=== PATIENT | male | born 1955 | race African-American/Black ===

== ENCOUNTER → 2016-12-23 | Outpatient (CLI) | payer BC, OTHER ==
[~2016-12-23] MED LIST: AMOXICILLIN/POTASSIU PO; AMOXICILLIN250 M1 PO; APAP500; ASPIRIN; CIALIS2.5 MG PO; CLARAVIS10 MG; FERRO-TIME325 MG; HYCET 7.5 MG-3473 ML PO; IBUPROFEN 200200 M1 PO; LEVAQUIN 500 M500 MG PO; LORTAB PO; NOHOMEMEDICATIONS; ONDANSETRON HCL4 M2 PO; SENNA-S TABLET1 EACH PO; TRAMADOL 50 MG50 MG PO; ZOFRAN ODT4 MG PO; denies meds
== END ==
LOC: ULTRA 07:51
DX: R74.8 Abnormal levels of other serum enzymes (principal)

== ENCOUNTER 2016-12-28 07:41 | Emergency (ER) | payer BC, OTHER ==
[~2016-12-28] VITALS: Ht 170.2 cm; Wt 63.5 kg
--- NOTE | ~2016-12-28 | EKG ---
[address] [address] ELECTROCARDIOGRAM REPORT Name: CLAUDIA CORTES RAQUEL [id number] Admission: 12/28/16 Attend Phys: Discharge: 12/28/16 Date of : 55 Report #: [id number] THIS REPORT FOR: //name// 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 : 1955 Requested By: Roberto Carlos aMson Order Number: [id number] MD: Anson Almendarez Measurements Intervals [place] Rate: 69 P: 9 MS: 157 QRS: 91 QRSD: 91 T: 21 QT: 380 QTc: 407 Interpretive Statements Sinus rhythm Probable early Repolarization Compared to ECG 09/01/2015 21:59:05 No significant change was found Electronically Signed On 12-29-2016 8:46:33 CDT by Anson Almendarez [email or web address] <ELECTRONICALLY SIGNED> By: Anson Almendarez MD, [facility] 12/29/16 0846 8 8 Anson Almendarez MD, [facility] /EPI
[2016-12-28] MEDS ORDERED: DOXYCYCLINE 10100 MG PO (07:49)
[2016-12-28] MEDS ORDERED: ACCUNEB SO1.25 MG/1 INH (07:49)
[2016-12-28 08:14] LABS: ABSOLUTE NEUTROPHILS 2.7 thou/uL (1.4-8.2); EOSINOPHILS 12.6 % (0.0-3.0); HEMATOCRIT 38.6 % (42.0-52.0); HEMOGLOBIN 12.9 gm/dL (14.0-18.0); LYMPHOCYTES 34.1 % (24.0-44.0); MCH 30.5 pg (26.0-34.0); MCHC 33.5 g/dL (28.0-37.0); MCV 91.1 fL (80.0-100.0); MONOCYTES 8.9 % (1.0-8.0); PLATELET COUNT 246 thou/uL (150-400); POLYS 43.4 % (36.0-66.0); RBC 4.24 mil/uL (4.50-6.00); RDW 13.3 % (10.5-14.5); WBC 6.1 thou/uL (4.0-11.0)
[2016-12-28 08:16] LABS: MANUAL DIFF NO
[2016-12-28 08:34] LABS: ANION GAP 11 mmol/L (7-16); BUN 11 mg/dL (7-18); CALCIUM 9.4 mg/dL (8.5-10.1); CHLORIDE 103 mmol/L (98-107); CO2 26 mmol/L (21-32); CREATININE 1.2 mg/dL (0.7-1.3); GLUCOSE 96 mg/dL (74-106); POTASSIUM 4.2 mmol/L (3.5-5.1)
[2016-12-28 08:36] LABS: SODIUM 140 mmol/L (136-145)
[2016-12-28] MEDS ORDERED: PREDNISONE 20 M20 MG PO (08:47)
[2016-12-28] MEDS ORDERED: VENTOLIN HFA 1818 GM INH (08:47)
[2016-12-28 08:50] LABS: ALBUMIN 3.8 g/dL (3.4-5.0); ALKALINE PHOSPHATASE 52 U/L (46-116); NT-PRO BRAIN NAT PEPTIDE 10 pg/mL (<300); SGOT 35 U/L (15-37); SGPT 36 U/L (30-65); TOTAL BILIRUBIN 0.4 mg/dL (<0.1-1.0); TOTAL PROTEIN 7.5 g/dL (6.4-8.2); TROPONIN-I < 0.04 ng/mL (<0.04-0.07)
[2016-12-28 09:15] VITALS: BP 132/78
[2016-12-28 09:32] LABS: CK-MB MASS 0.7 ng/mL (<0.5-3.6)
== END 2016-12-28 09:16 | disposition home or self-care (01) ==
LOC: ER 07:41
PROVIDERS: Emergency Medicine
DX: J40 Bronchitis, not specified as acute or chronic (principal); J98.01 Acute bronchospasm; Z98.890 Other specified postprocedural states; Z88.0 Allergy status to penicillin

== ENCOUNTER 2018-07-29 08:30 | Inpatient (IN) | payer BC, OTHER ==
[~2018-07-29] VITALS: Ht 170.2 cm; Wt 68.0 kg
[~2018-07-29 08:30] MED LIST changes: +ACCUNEB SO1.25 MG/1 INH; +DOXYCYCLINE 10100 MG PO; +PREDNISONE 20 M20 MG PO; +VENTOLIN HFA 1818 GM INH
[2018-07-29 08:35] VITALS: BP 160/101
[2018-07-29 09:28] LABS: ABSOLUTE NEUTROPHILS 8.8 thou/uL (1.4-8.2); BASOPHILS 0.3 % (0.0-2.0); EOSINOPHILS 0.2 % (0.0-3.0); HEMOGLOBIN 13.6 gm/dL (14.0-18.0); LYMPHOCYTES 8.7 % (24.0-44.0); MCHC 33.1 g/dL (28.0-37.0); MCV 90.5 fL (80.0-100.0); MONOCYTES 3.9 % (1.0-8.0); PLATELET COUNT 304 thou/uL (150-400); POLYS 86.9 % (36.0-66.0); RBC 4.53 mil/uL (4.50-6.00); RDW 13.5 % (10.5-14.5); WBC 10.2 thou/uL (4.0-11.0)
[2018-07-29 09:35] LABS: CREATININE 1.2 mg/dL (0.7-1.3); POTASSIUM 4.1 mmol/L (3.5-5.1)
[2018-07-29 09:40] LABS: ALBUMIN 4.1 g/dL (3.4-5.0); DIRECT BILIRUBIN 0.2 mg/dL (<0.1-0.3); TOTAL BILIRUBIN 0.6 mg/dL (<0.1-1.0); TOTAL PROTEIN 9.2 g/dL (6.4-8.2)
[2018-07-29 10:02] LABS: URINE CLARITY CLEAR; URINE COLOR YELLOW; URINE SPECIFIC GRAVITY 1.015 (1.005-1.035)
[2018-07-29 10:03] LABS: URINE BILIRUBIN NEGATIVE (Negative); URINE BLOOD NEGATIVE (Negative); URINE GLUCOSE-RANDOM* NEGATIVE (Negative); URINE KETONES 2+ (Negative); URINE LEUKOCYTES NEGATIVE (Negative); URINE NITRITE NEGATIVE (Negative); URINE PROTEIN (DIPSTICK) NEGATIVE (Negative); URINE UROBILINOGEN 0.2 E.U./dl (0.2-1.0)
[2018-07-29] MEDS ORDERED: SPIRIVA18 MCG INH (10:08)
[2018-07-29] MEDS ORDERED: SINGULAIR 10 MG10 M1 PO (10:08)
[2018-07-29 10:35] VITALS: BP 152/82
[2018-07-29 13:00] VITALS: BP 161/86
--- NOTE | 2018-07-29 13:17 | NUR ---
PT ARRIVED ON UNIT ACCOMPANIED BY ALERT XS 4 NO JANE NO RESP DISTRESS AT THIS TIME. ADMISSION PAPERWORK. SUCTION AND VITALS TO BE COMPLETED AT THIS TIME, PT IS ADMITTED WITH DX SMALL BOWEL OBSTRUCTION . ADMIITED MED SURGE .
[2018-07-29 18:44] VITALS: BP 161/86
[2018-07-29 20:33] VITALS: BP 154/78
[2018-07-30 04:37] VITALS: BP 149/85
--- NOTE | 2018-07-30 06:11 | NUR ---
ASSUMED CARE AT 1900, ASSESSMENT COMPLETED. PT REPORTS MODERATE BURNING PAIN IN ABD, GAVE MORPHINE ONCE. REPORTS MILD NAUSEA, ONE DOSE OF ZOFRAN. PT ASKED TO TRY NOT TAKING MEDS OVERNIGHT SO HE COULD DIFFERENTIATE PAIN. NG IN LEFT NARE AT 59, PULLING DARK REDDISH BROWN, GRAINY LIQUID, 400 ML OUT OVERNIGHT. STATES HE WANTS TO GET UP THIS MORNING AND CLEAN UP THEN WALK AROUND. IV FLUIDS INFUSING. NO OTHER CONCERNS, WILL CONTINUE TO MONITOR.
[2018-07-30 07:16] VITALS: BP 137/83
--- NOTE | 2018-07-30 11:25 | NUR ---
ASSUMED CARE THIS AM, SHIFT ASSESSMENT DONE, REMAINS NPO. ON LOW INTERMITTENT NG SUCTION. PRODUCING BROWN BLOODY FLUIDS. REPROTED NAUSEA AND PAIN, PRN MEDS GIVEN. WALKED AROUD THE UNIT THIS AM, UP AD JAVON. WILL CONTINUE TO ASSESS AND ASSIST WITH ADLs NEEDED.
[2018-07-30 13:41] LABS: HEMATOCRIT 38.1 % (42.0-52.0); HEMOGLOBIN 12.5 gm/dL (14.0-18.0); MCH 30.1 pg (26.0-34.0); MCHC 32.9 g/dL (28.0-37.0); MCV 91.6 fL (80.0-100.0); RBC 4.16 mil/uL (4.50-6.00); RDW 13.3 % (10.5-14.5); WBC 6.9 thou/uL (4.0-11.0)
[2018-07-30 13:45] LABS: CALCIUM 9.1 mg/dL (8.5-10.1); CREATININE 1.1 mg/dL (0.7-1.3); POTASSIUM 3.7 mmol/L (3.5-5.1)
[2018-07-30 16:11] VITALS: BP 140/74
--- NOTE | 2018-07-30 16:42 | NUR ---
PT ADMITTED RELATED TO SMALL BOWEL OBSTRUCTION. CM REVIEWED CHART AND SPOKE WITH CARE TEAM. CM MET WITH PT AT BEDSIDE THIS DAY. PT IS A&O X4 CM ROLE INTRODUCED. PT INDICATED HE LIVES IN A HOUSE WITH HIS SPOUSE WITH 2 STEPS TO ENTER AND NO STEPS INSIDE. 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 PT INDICATED NO DME OR HH HX. PT ANTICIPATES RETURNING HOME ONCE MEDICALLY STABLE. CM TO FOLLOW INDICATED WITH DC PLANNING.
--- NOTE | 2018-07-31 04:15 | NUR ---
ASSUMED CARE AT 1900, ASSESSMENT COMPLETED. PT REPORTS HE STILL HAS BURNING PAIN IN MID ABD, RATING FROM 5-7 OVERNIGHT, GIVEN MORPHINE ONCE SO FAR. C/O MODERATE NAUSEA, ZOFRAN ONCE TONIGHT WELL. PT REFUSED TO TAKE IV PEPCID, STATED IT INCREASED HIS PAIN LEVEL WHEN GIVEN IN THE AM. ATTEMPTED TO EXPLAIN THE PURPOSE OF THE PEPCID, AND ENCOURAGE HIM TO TRY IT BY ITSELF TONIGHT RATHER THAN WITH THE MORPHINE AND ZOFRAN HE HAD HAD IT EARLIER, BUT STILL REFUSED. MINIMAL OUTPUT FROM NG TUBE OVERNIGHT; WAS ABLE TO FLUSH WATER THROUGH IT BUT DID NOT DRAW BACK ANYTHING, MOST OF THE OUTPUT FROM SUCTION HAS BEEN CLEAR. STOMACH SEEMS SLIGHTLY FIRMER TONIGHT COMPARED TO PREVIOUS SHIFT, AND BOWEL SOUNDS ARE QUIETER IN ALL QUADS. PT HAS ANXIETY ABOUT HOW LONG THE TUBE NEEDS TO BE IN, ASKED IF "THE AIR IN MY STOMACH WILL TURN TOXIC," HOW WILL THE DOCTOR KNOW IF BOWEL FUNCTION IS BACK IF NOTHING IS IN THE STOMACH, ETC...ATTEMPTED TO EXPLAIN BUT PT SEEMED TO BE REALLY STRUGGLING WITH ALL THESE CONCEPTS. NO OTHER CONCERNS, WILL CONTINUE TO MONITOR.
[2018-07-31 05:03] VITALS: BP 148/96
[2018-07-31 07:00] VITALS: BP 133/88
--- NOTE | 2018-07-31 09:27 | NUR ---
PT TAKEN TO PRE OP AT THIS TIME SURGERY WITH DR CANDELARIO AT 10:30 OR 11:00 PT W/O PAIN OR RESP DISTRESS.
[2018-07-31 14:11] VITALS: BP 133/88
[2018-07-31 14:46] VITALS: BP 151/86
[2018-07-31 20:25] VITALS: BP 152/87
--- NOTE | 2018-08-01 07:16 | NUR ---
ASSUMED CARE AT 1900, ASSESSMENT COMPLETED. PT C/O ABD PAIN AND MILD NAUSEA ALL NIGHT, GAVE ZOFRAN AND MORPHINE EVERY 4-5 HOURS. STOMACH FIRM BUT NOT HARD, HYPOACTIVE BOWEL SOUNDS, DENIED PASSING GAS. ABOUT 350 ML OUT OF NG. HAD LOW-GRADE TEMP ABOUT 100 AT MIDNIGHT BUT CAME BACK DOWN TO 98 BY AM VITALS. IV FLUIDS INFUSING, HAVING DARK YELLOW URINE OUT. NO OTHER CONCERNS, WILL CONTINUE TO MONITOR.
--- NOTE | 2018-08-01 08:14 | NUR ---
ASSESMENT COMPLETED. VSS. A/O. C/O PAIN MANAGED BY MEDS ORDERED. NO NOTED SOA. NO NV. NG TO LIS. PT ANTICIPATING TO DC NG TODAY. WILL CONT. TO MONITOR.
[2018-08-01 08:24] VITALS: BP 147/92
[2018-08-01 10:08] LABS: HEMATOCRIT 36.8 % (42.0-52.0); HEMOGLOBIN 12.5 gm/dL (14.0-18.0); MCH 30.3 pg (26.0-34.0); MCHC 33.9 g/dL (28.0-37.0); MCV 89.5 fL (80.0-100.0); RBC 4.11 mil/uL (4.50-6.00); RDW 12.7 % (10.5-14.5); WBC 8.3 thou/uL (4.0-11.0)
[2018-08-01 10:15] LABS: CALCIUM 8.7 mg/dL (8.5-10.1); CREATININE 1.1 mg/dL (0.7-1.3); POTASSIUM 3.2 mmol/L (3.5-5.1)
[2018-08-01 16:55] VITALS: BP 166/92
--- NOTE | 2018-08-01 17:42 | NUR ---
NG TUBE DC'D THIS AM ORDERED. PT WALKED SEVERAL TIMES IN HALLWAY. PT RESTING IN BED AT THIS TIME WITH EYES CLOSE. WILL CONT. TO MONITOR.
[2018-08-01 20:06] VITALS: BP 141/98
--- NOTE | 2018-08-02 02:59 | NUR ---
PT DENIED PAIN SO FAR.PT UP ADLIB IN ROOM,WALKED 3 LAPS IN THE UNIT BEFORE RETIRING TO HIS ROOM.PT DRINKING AND TOLERATING CLEAR LIQUIDS OK,REFUSED TO CONT WITH HIS IVF.PT STATED THAT HE HAS STARTED TO PASS GAS.LAP SITES C/D/I.PT RESTING ON HIS BED AT THIS TIME ANTICIPATING DC IN THE AM.CALL LIGHT WITHIN REACH.
[2018-08-02 03:45] VITALS: BP 144/92
[2018-08-02 08:13] VITALS: BP 161/77
[2018-08-02] MEDS ORDERED: HYDROCODONE-AP1 EAC6 PO (10:51)
[2018-08-02 14:28] VITALS: BP 161/77
--- NOTE | 2018-08-02 16:04 | NUR ---
ASSUMED CARE AT 0700, SHIFT ASSESSMENT DONE, MEDS GIVEN, VSS. ON FULL LIQUID DIET FOR BREAKFAST, TOLERATED WELL. REGULAR DIET FOR LUCNH, TOLERATED WELL. DISCHARGE ORDERS RECEVIED. PERIPHERAL IV WAS TAKEN OUT. DISCHARGE PAPERWORK AND SCRIPT GIVEN. PATIENT LEFT WITH [facility] AND WAS PICKED UP BY .
== END 2018-08-02 15:41 | disposition home or self-care (01) | DRG 337 ==
LOC: ER 08:30 → 4E 10:03 → EROBS 10:03 → 4E 12:55 → ENTRNSPT 08-02 15:33 → 4E 08-02 15:41
PROVIDERS: Emergency Medicine; Surgery; ADMIT Internal Medicine
DX: K56.50 Intestinal adhesions [bands], unspecified as to partial versus complete obstruction (principal); J45.909 Unspecified asthma, uncomplicated; I10 Essential (primary) hypertension; R14.0 Abdominal distension (gaseous); Z79.899 Other long term (current) drug therapy; Z90.49 Acquired absence of other specified parts of digestive tract; Z88.0 Allergy status to penicillin
CPT/HCPCS: 10084; 50010; 50101; 50249; 50386; 50555; 52265; 53307; 53310; 54118; 56462; 56525; 56526; 56771; 57092; 62110; 62900; 70005

== ENCOUNTER 2018-08-08 15:09 | Inpatient (IN) | payer BC, OTHER ==
[~2018-08-08] VITALS: Ht 170.2 cm; Wt 68.0 kg
[~2018-08-08 15:09] MED LIST changes: +HYDROCODONE-AP1 EAC6 PO; +SINGULAIR 10 MG10 M1 PO; +SPIRIVA18 MCG INH
[2018-08-08 15:10] VITALS: BP 129/85
[2018-08-08 15:49] LABS: ABSOLUTE NEUTROPHILS 8.7 thou/uL (1.4-8.2); BASOPHILS 0.3 % (0.0-2.0); EOSINOPHILS 1.6 % (0.0-3.0); HEMATOCRIT 38.8 % (42.0-52.0); LYMPHOCYTES 13.3 % (24.0-44.0); MCHC 33.6 g/dL (28.0-37.0); MCV 89.5 fL (80.0-100.0); MONOCYTES 9.4 % (1.0-8.0); PLATELET COUNT 467 thou/uL (150-400); POLYS 75.4 % (36.0-66.0); RBC 4.33 mil/uL (4.50-6.00); RDW 12.9 % (10.5-14.5); WBC 11.6 thou/uL (4.0-11.0)
[2018-08-08 15:56] LABS: CALCIUM 9.6 mg/dL (8.5-10.1); CREATININE 1.3 mg/dL (0.7-1.3); POTASSIUM 3.4 mmol/L (3.5-5.1)
[2018-08-08 16:03] LABS: ALBUMIN 3.8 g/dL (3.4-5.0); TOTAL BILIRUBIN 0.6 mg/dL (<0.1-1.0); TOTAL PROTEIN 8.7 g/dL (6.4-8.2)
[2018-08-08 16:20] LABS: URINE CLARITY CLEAR; URINE COLOR YELLOW
[2018-08-08 16:21] LABS: URINE BILIRUBIN NEGATIVE (Negative); URINE BLOOD NEGATIVE (Negative); URINE GLUCOSE-RANDOM* NEGATIVE (Negative); URINE KETONES TRACE (Negative); URINE LEUKOCYTES-REFLEX NEGATIVE (Negative); URINE NITRITE-REFLEX NEGATIVE (Negative); URINE PROTEIN (DIPSTICK) NEGATIVE (Negative); URINE UROBILINOGEN 0.2 E.U./dl (0.2-1.0)
[2018-08-08 16:56] VITALS: BP 150/90
[2018-08-08 18:24] VITALS: BP 163/98
[2018-08-08] MEDS ORDERED: SYMBICORT160 MCG/4. INH (20:34)
[2018-08-08 23:59] VITALS: BP 114/68
[2018-08-09 04:14] VITALS: BP 104/66
[2018-08-09 05:48] LABS: HEMATOCRIT 32.4 % (42.0-52.0); MCH 30.9 pg (26.0-34.0); RBC 3.56 mil/uL (4.50-6.00); RDW 13.3 % (10.5-14.5); WBC 6.2 thou/uL (4.0-11.0)
[2018-08-09 05:58] LABS: PLATELET COUNT 359 thou/uL (150-400)
[2018-08-09 06:06] LABS: CALCIUM 8.5 mg/dL (8.5-10.1); CREATININE 1.1 mg/dL (0.7-1.3); POTASSIUM 3.6 mmol/L (3.5-5.1)
[2018-08-09 06:12] LABS: ALBUMIN 2.7 g/dL (3.4-5.0); TOTAL BILIRUBIN 0.4 mg/dL (<0.1-1.0); TOTAL PROTEIN 6.4 g/dL (6.4-8.2)
--- NOTE | 2018-08-09 06:32 | NUR ---
NG TUBE TO LOW SUCTION. 350ML YELLOW/LIGHT RED BUT WITHOUT OBVIOUS BLOOD DRAINAGE. REFUSED SCDS, LOVENOX EVEN WITH DISCUSSION ABOUT POSSIBLE MEDICAL CONSEQUENCES SUCH CLOTS. AT BEDSIDE WHEN I HAD THIS DISCUSSION WITH HIM. ABLE TO AMBULATE WITH ONLY MINIMAL ASSIST WITH EQUIPMENT. ADEQUATE PAIN RELIEF WITH PRN MORPHINE GIVEN. ALSO RECEIVED PRN ZOFRAN. NO VOMITING.
[2018-08-09 06:34] LABS: ABSOLUTE NEUTROPHILS 3.3 thou/uL (1.4-8.2)
[2018-08-09 06:35] LABS: PLATELET ESTIMATE NORMAL
--- NOTE | 2018-08-09 08:38 | NUR ---
ASSUMED PT CARE AT 0700. ASSESSED PT AT 0830. PT UP AD JAVON IN ROOM AND STEADY ON FEET. ALERT/ORIENTED X4. PT REPORTS PAIN IN ABDOMEN 4/10 CONSTANT. DENIES THE NEED FOR MEDICATION AT THIS TIME. DENIES NAUSEA. NG TUBE TO LOW INT. SUCTION IN LEFT NARE. AUSCULTATED FOR PLACEMENT. PT CONTINUES TO REFUSE ANTICOAGULANT THERAPY FOR DVT PREVENTION, HOWEVER, PT IS UP WALKING. WILL CONTINUE CURRENT CARE AT THIS TIME.
[2018-08-09 11:46] VITALS: BP 118/79
--- NOTE | 2018-08-09 13:11 | NUR ---
PT ADMITTED RELATED TO SMALL BOWEL OBSTRUCTION. PT HAD DISCHARGE HOME 6 DAYS AGO WITH NO NEEDS. CM REVIEWED CHART AND SPOKE WITH CARE TEAM. CM MET WITH PT AT BEDSIDE THIS DAY. PT IS A&O X4 CM ROLE INTRODUCED. PT INDICATED HE LIVES IN A HOUSE WITH HIS SPOUSE WITH 2 STEPS TO ENTER AND NO STEPS INSIDE. 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 PT INDICATED NO DME OR HH HX. PT ANTICIPATES RETURNING HOME ONCE MEDICALLY STABLE. CM TO FOLLOW INDICATED WITH DC PLANNING.
--- NOTE | 2018-08-09 14:34 | NUR ---
UPON RETURNING FROM CT SCAN PT REPORTED SOME NAUSEA DUE TO THE CONTRAST. NO RETURN FROM NG SUCTIONING. NO VOMITTING. ZOFRAN GIVEN ORDERED. NG REMOVED PER DR ORDER AND PT STARTED ON CLEAR LIQUIDS WHICH HE HAS TOLERATED SO FAR. WILL CONTINUE TO MONITOR.
--- NOTE | 2018-08-09 14:56 | NUR ---
SENT PT TO [facility] IN [facility]. REPORT GIVEN TO RECEIVING NURSE.
[2018-08-09 15:50] VITALS: BP 121/83
--- NOTE | 2018-08-09 16:58 | NUR ---
PATIENT ARRIVED TO [facility] AT 1515 TO ROOM 227, FROM 463.PATIENT WAS ABLE TO TRANSFER FROM W/C TO BED ON HIS OWN.IV IS INTACT.PT IS RESTING IN CHAIR.NO PAIN AT THIS TIME. PT WAS ORIENTED TO ROOM AND GIVEN CALL LIGHT, PHONE, AND PERSONAL BELONGINGS ARE WITHIN REACH.
--- NOTE | 2018-08-09 17:19 | NUR ---
PATIENT HAD BLOOD SUGAR OF 69.PATIENT WAS GIVEN SNACK BEFORE DINNER.WILL CONTINUE TO MONITOR.
--- NOTE | 2018-08-10 04:00 | NUR ---
Pt A/OX4,up with IV pole in room without problems.C/o pain to lower abd LOP 4/10. C/o nausea with no emesis medicated with Zofran with relief reported and thereafter Morphine and pt reported some relief. Up to the bathroom several times to pee,no BM but reports some flatus. Abd a little distended and firm. IV fluids infusing via RAC PIV without any problems noted.Pt continues on a clear liquid diet and hesitant to take anything for a snack.Encouraged to voice needs as needed. Call light/personal items within reach, at the bedside for the night.Will continue to monitor pt.
[2018-08-10 07:30] VITALS: BP 150/80
--- NOTE | 2018-08-10 10:37 | NUR ---
SW reviewed chart and spoke with nursing. Pt was transferred to [facility] from . Pt is on clear liquid diet and is progressing towards goals for discharge. Plan is for pt to discharge home when medically stable. [facility] is following to assist as needed with discharge planning.
--- NOTE | 2018-08-10 12:53 | NUR ---
PATIENT CARE WAS ASSUMED AT 0715.PATIENT IS ALERT AND ORIENTED X4.PATIENT HAS NO COMPLAINS OF PAIN AT THIS TIME.PATIENT IS ABLE TO AMBULATE ON HIS OWN.PATIENT HAS IV INTACT WITH FLUIDS INFUSING.CALL LIGHT,PHONE, AND PERSONAL BELONGINGS ARE WITHIN REACH.WILL CONTINUE TO MONITOR PATIENT.
[2018-08-10 19:38] VITALS: BP 137/93
--- NOTE | 2018-08-11 04:47 | NUR ---
PATIENT ALERT AND ORIENTED X4. IV LEAKING AND REPLACED. CONTINUOUS IVF INFUSING. DENIES PAIN. MOM GIVEN AT SHIFT CHANGE WITH NO RESULTS AT TIME OF THIS NOTE. PATIENT UP ADLIB IN ROOM AND HALLWAY. NO NAUSEA OR VOMITING DURING THE NIGHT. TOLERATING FULL LIQUID DIET. BS MONITORED PER ORDER. RESTING QUIETLY AT TIME OF NOTE. WILL MONITOR.
[2018-08-11 06:34] LABS: ALBUMIN 3.3 g/dL (3.4-5.0); CALCIUM 9.3 mg/dL (8.5-10.1); CREATININE 1.1 mg/dL (0.7-1.3); POTASSIUM 3.9 mmol/L (3.5-5.1); TOTAL BILIRUBIN 0.5 mg/dL (<0.1-1.0); TOTAL PROTEIN 7.2 g/dL (6.4-8.2)
[2018-08-11 10:28] VITALS: BP 137/93
--- NOTE | 2018-08-11 11:13 | NUR ---
ASSUMED CARE OF PATIENT AT 0715, PATIENT ALERT AND ORIENTED X 4. PATIENT UP AD JAVON. LAKSHMI HAS RIGHT UPPR ARM IV WITH D 5NS AT 40CC/HR CONT. DR WANG HERE THIS AM, OK TO DISCHARGE TO HOME, UPGRADED DIET TO REGULAR. PATIENT C/O PAIN 1-08/26 WITH ABDOMEN AREA, 3 LAP SITES, ALL SITES C/D/I. DR HEADLEY HERE THIS AM, OK TO D/C FLUIDS AND ORDER TO DISCHARGE PATIENT TO HOME. PATIENT HAD MEDIUM STOOL THIS AM AND 1 STOOL AT 0230 THIS AM. PATIENT DENIES NAUSEA, TOLERATED FULL LIQUID DIET THIS AM. ALL DISCHARGE PAPERWORK AND ALL PERSONAL BELONGINGS SENT WITH PATIENT.
== END 2018-08-11 11:05 | disposition home or self-care (01) | DRG 390 ==
LOC: ER 15:09 → EROBS 16:39 → 4W 16:39 → SICU 08-09 15:21
PROVIDERS: Physician Assistant; ADMIT Hospitalist
DX: K56.609 Unspecified intestinal obstruction, unspecified as to partial versus complete obstruction (principal); J45.909 Unspecified asthma, uncomplicated; Z90.49 Acquired absence of other specified parts of digestive tract; Z88.0 Allergy status to penicillin; Z79.899 Other long term (current) drug therapy
CPT/HCPCS: 10045; 10047; 15002

== ENCOUNTER 2018-10-28 14:04 | Emergency (ER) | payer BC, OTHER ==
[~2018-10-28] VITALS: Ht 175.3 cm; Wt 76.9 kg
[~2018-10-28 14:04] MED LIST changes: +SYMBICORT160 MCG/4. INH
[2018-10-28 14:48] LABS: ABSOLUTE NEUTROPHILS 7.3 thou/uL (1.4-8.2); BASOPHILS 0.2 % (0.0-2.0); EOSINOPHILS 0.2 % (0.0-3.0); HEMOGLOBIN 12.9 gm/dL (14.0-18.0); LYMPHOCYTES 9.4 % (24.0-44.0); MCH 30.4 pg (26.0-34.0); MCHC 33.9 g/dL (28.0-37.0); MCV 89.6 fL (80.0-100.0); MONOCYTES 3.5 % (1.0-8.0); PLATELET COUNT 252 thou/uL (150-400); POLYS 86.7 % (36.0-66.0); RBC 4.23 mil/uL (4.50-6.00); RDW 14.4 % (10.5-14.5); WBC 8.5 thou/uL (4.0-11.0)
[2018-10-28 14:54] LABS: CALCIUM 9.7 mg/dL (8.5-10.1); CREATININE 1.1 mg/dL (0.7-1.3); POTASSIUM 3.9 mmol/L (3.5-5.1)
[2018-10-28 15:00] LABS: ALBUMIN 4.1 g/dL (3.4-5.0); TOTAL BILIRUBIN 0.6 mg/dL (<0.1-1.0); TOTAL PROTEIN 8.4 g/dL (6.4-8.2)
[2018-10-28] MEDS ORDERED: ZOFRAN ODT4 MG PO (16:41)
[2018-10-28 16:43] VITALS: BP 140/82
== END 2018-10-28 16:44 | disposition home or self-care (01) ==
LOC: ER 14:04
PROVIDERS: Emergency Medicine
DX: R10.84 Generalized abdominal pain (principal); R11.2 Nausea with vomiting, unspecified; J45.909 Unspecified asthma, uncomplicated; Z90.49 Acquired absence of other specified parts of digestive tract; Z88.0 Allergy status to penicillin

== ENCOUNTER 2020-11-20 18:27 | Emergency (ER) | payer OTHER ==
[~2020-11-20] VITALS: Ht 170.2 cm; Wt 68.0 kg
[2020-11-20] MEDS ORDERED: BREZTRI AEROS10.7 GM INH (18:44)
[2020-11-20 19:24] LABS: ABSOLUTE NEUTROPHILS 3.3 thou/uL (1.4-8.2); BASOPHILS 0.6 % (0.0-2.0); EOSINOPHILS 1.5 % (0.0-3.0); HEMATOCRIT 40.2 % (42.0-52.0); HEMOGLOBIN 13.3 gm/dL (14.0-18.0); LYMPHOCYTES 31.3 % (24.0-44.0); MCH 30.6 pg (26.0-34.0); MCHC 33.1 g/dL (28.0-37.0); MCV 92.5 fL (80.0-100.0); MONOCYTES 10.9 % (1.0-8.0); PLATELET COUNT 306 thou/uL (150-400); POLYS 55.7 % (36.0-66.0); RBC 4.35 mil/uL (4.50-6.00); RDW 13.4 % (10.5-14.5)
[2020-11-20 19:32] LABS: ANION GAP 7 mmol/L (7-16); BUN 9 mg/dL (7-18); CALCIUM 9.8 mg/dL (8.5-10.1); CHLORIDE 101 mmol/L (98-107); CO2 31 mmol/L (21-32); CREATININE 1.2 mg/dL (0.7-1.3); GLUCOSE 85 mg/dL (74-106); POTASSIUM 4.4 mmol/L (3.5-5.1); SODIUM 139 mmol/L (136-145)
[2020-11-20 19:42] LABS: ALBUMIN 4.2 g/dL (3.4-5.0); LIPASE 84 U/L (73-393); SGOT 27 U/L (15-37); SGPT 24 U/L (16-63); TOTAL BILIRUBIN 0.9 mg/dL (0.2-1.0); TOTAL PROTEIN 8.8 g/dL (6.4-8.2); TROPONIN-I <0.06 ng/mL (<0.06)
[2020-11-20 20:50] VITALS: BP 147/87
--- NOTE | 2020-11-21 09:06 | EKG ---
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 changes Electronically Signed On 11-21-2020 9:05:55 CDT by Mainor Benitez [email or web address] <ELECTRONICALLY SIGNED> By: Mainor Benitez MD, [facility] 11/21/20 09 31 1832 Mainor Benitez MD, [facility] /EPI
== END 2020-11-20 20:52 | disposition home or self-care (01) ==
LOC: ER 18:27
PROVIDERS: Emergency Medicine
DX: R00.2 Palpitations (principal); J45.909 Unspecified asthma, uncomplicated; Z88.0 Allergy status to penicillin; Z79.899 Other long term (current) drug therapy; Z90.49 Acquired absence of other specified parts of digestive tract